=== PATIENT | male | born 1945 | race Caucasian/White ===

== ENCOUNTER 2017-07-23 18:44 | Emergency (ER) | payer MEDICARE, BC ==
[2017-07-23] MEDS ORDERED: Benoxinate/Fluorescein 0.4-0.25% Ophth Soln 5 ML Bottle EYEBOTH STA (19:09)
[2017-07-23] MEDS ORDERED: Proparacaine 0.5% Ophth Soln 15 ML Bottle EYEBOTH ONE (19:10)
[2017-07-23] MEDS ORDERED: Fluorescein 0.6 MG Ophth Strip EYEBOTH ONE (19:12)
[2017-07-23] MEDS ORDERED: cefTRIAXone 1 GM Vial IM ONE (19:31)
[2017-07-23] MEDS ORDERED: Doxycycline 100 MG Cap PO ONE (19:33)
[2017-07-23] MEDS ORDERED: Ciprofloxacin 0.3% Ophth Soln 2.5 ML Bottle EYEBOTH ONE (19:35)
--- NOTE | 2017-07-23 19:41 | EDM.PDOC ---
ED HPI GENERAL MEDICAL PROBLEM - General Chief Complaint: Eye Problems Stated Complaint: EYE ISSUES RIGHT EAR ISSUES Time Seen by Provider: 07/23/17 19:05 Source of Information: Reports: Patient History Limitations: Reports: No Limitations - History of Present Illness INITIAL COMMENTS - FREE TEXT/NARRATIVE: Patient is a 71-year-old male presents to the ED complaining of red and irritated eyes that started draining yellowish fluid. Patient states he awoke with the symptoms this morning and has progressively worsened over the course of today. Just irritated with no pain. In addition started developing some drainage from his right ear. States he was at the [facility] over the weekend. 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 Patient admits not washing his hands after using the restroom. He has no eye pain. No vision changes. He has not taken any medication for discomfort. Nor does he ever had similar symptoms as such. Denies any sinus drainage, runny nose , sore throat, cough, fever, or any additional complaints. 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 (see below) Other Treatments PANTOGRAPH II ENGRAVER: none Bilateral Eye Pain Score (Numeric/FACES): 10 - Related Data Allergies Allergy/AdvReac Type Severity Reaction Status Date / Time No Known Allergies Allergy Verified 07/23/17 18:58 Home Meds: Home Meds Doxycycline [Vibramycin] 100 mg PO DAILY #20 tab 07/23/17 [Rx] metFORMIN [Glucophage XR] 1,000 mg PO DAILY 07/23/17 [History] metFORMIN [Glucophage XR] 500 mg PO 1800 07/23/17 [History] Past Medical History Endocrine/Metabolic History: Reports: Diabetes, Type II Oncologic (Cancer) History: Reports: Prostate - Past Surgical History GI Surgical History: Reports: Hernia, Inguinal Social & Family History - Tobacco Use Smoking Status *Q: Current Every Day Smoker Years of Tobacco use: 50 Packs/Tins Daily: 0.2 - Caffeine Use Caffeine Use: Reports: Coffee - Recreational Drug Use Recreational Drug Use: No ED ROS GENERAL - Review of Systems Review Of Systems: See Below Constitutional: Reports: No Symptoms HEENT: Reports: Ear Discharge (right side), Eye Discharge (both eyes). Denies: Ear Pain, Eye Pain (irritation, no pain) Respiratory: Reports: No Symptoms Cardiovascular: Reports: No Symptoms Skin: Reports: No Symptoms ED EXAM GENERAL W FULL EYE - Physical Exam Exam: See Below Exam Limited By: No Limitations General Appearance: Alert, WD/WN, No Apparent Distress Eye Exam: Bilateral Eye: Conjunctival Injection, Other (thick yellowish drainage ) Visual Acuity (R) 20/: 40 Visual Acuity (L) 20/: 40 With Correction: No IOP (R) in mmH (Unable to obtain, equip) IOP (L) in mmH (unable to obtain, equip) IOP Measure with (Equipment): Other Eyelids: Bilateral: Normal Appearance Conjunctiva & Sclera: Bilateral: Injected Extraocular Movements: Bilateral: Intact Pupillary Size: Bilateral: 4 mm Pupillary Reaction: Bilateral: Brisk Ears: Other (right ear canal is swollen with yellowish drainage no blood. Left TM appears normal.) Throat/Mouth: Normal Inspection, Normal Voice, No Airway Compromise Head: Atraumatic, Normocephalic Neck: Normal Inspection, Supple, Non-Tender Respiratory/Chest: No Respiratory Distress, No Accessory Muscle Use Cardiovascular: Normal Peripheral Pulses, Regular Rate, Rhythm Neurological: Alert, Oriented, CN II-XII Intact, Normal Cognition, No Motor/ Sensory Deficits Psychiatric: Normal Affect, Normal Mood Skin Exam: Warm, Dry, Intact, Normal Color, No Rash Course - Vital Signs Last Recorded V/S: Last Vital Signs Temp 98.7 F 07/23/17 18:54 Pulse 73 07/23/17 18:54 Resp 20 07/23/17 18:54 BP 125/83 07/23/17 18:54 Pulse Ox 93 L 07/23/17 18:54 - Orders/Labs/Meds Meds: Medications Discontinued Medications Generic Name Dose Route Start Last Admin Trade Name Evans PRN Reason Stop Dose Admin Ceftriaxone Sodium 1 gm 07/23/17 19:31 07/23/17 19:59 Rocephin IM 07/23/17 19:32 1 gm ONETIME ONE Administration Ciprofloxacin 1 ml 07/23/17 19:35 07/23/17 20:00 Ciloxan 0.3% Ophth Soln EYEBOTH 07/23/17 19:36 1 drop ONETIME ONE Administration Doxycycline Hyclate 200 mg 07/23/17 19:33 07/23/17 19:59 Vibramycin PO 07/23/17 19:34 200 mg ONETIME ONE Administration Fluorescein Sodium 0.6 mg 07/23/17 19:12 Ful-Ailin EYEBOTH 07/23/17 19:13 ONETIME ONE Fluorescein Sodium/Benoxinate HCl 2 ml 07/23/17 19:09 Fluress Ophth Soln EYEBOTH 07/23/17 19:10 NOW STA Proparacaine HCl 2 ml 07/23/17 19:10 07/23/17 19:18 Proparacaine 0.5% Ophth Soln EYEBOTH 07/23/17 19:11 2 drop NOW ONE Administration - Re-Assessments/Exams Free Text/Narrative Re-Assessment/Exam: It appears patient has bilateral bacterial conjunctivitis with right-sided external otitis media. Unable to visualize the inner aspect of the ear. Labs ordered 1 g of Rocephin IM, doxycycline 100 mg by mouth, and Cipro drops to the eyes. Will discharge patient home with prescription for doxycycline. He'll take the Cipro drops home with him as well. Unable to get accurate intraocular pressure. 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 He does not complain of any significant pain. States is more of irritation than anything. Patient awoke with the symptoms. Departure - Departure Time of Disposition: 19:41 Disposition: Home, Self-Care 01 Condition: Good Clinical Impression: Conjunctivitis Qualifiers: Conjunctivitis type: unspecified Laterality: bilateral Qualified Code(s): H10.9 - Unspecified conjunctivitis External otitis of right ear Qualifiers: Otitis externa type: unspecified type Chronicity: acute Qualified Code(s): H60.501 - Unspecified acute noninfective otitis externa, right ear - Discharge Information Prescriptions: Doxycycline [Vibramycin] 100 mg PO DAILY #20 tab Instructions: Otitis Externa, [id number], Bacterial Conjunctivitis, Easy-to- Read, Bacterial Conjunctivitis Referrals: PCP,None [Primary Care Provider] - Forms: ED Department Discharge Additional Instructions: Apply ciprofloxacin ophthalmologic drops, one drop into both eyes times a day for 7 days. Take doxycycline 100 mg twice a day for the next 10 days. Do not rub your eyes. Wash hands after using a restroom, handling livestock, and with touching eyes. Followup with optometrists of your choice tomorrow or Monday for reevaluation. Return to the E.D. if you develop any new or worsening symptoms.
== END 2017-07-23 20:10 | disposition home or self-care (01) ==
LOC: SUPCPDRO 18:44 → JD.ED 18:44
DX: H60.501 Unspecified acute noninfective otitis externa, right ear (principal); H10.9 Unspecified conjunctivitis; E11.9 Type 2 diabetes mellitus without complications; F17.210 Nicotine dependence, cigarettes, uncomplicated; Z79.84 Long term (current) use of oral hypoglycemic drugs
CPT/HCPCS: 96372; 99283; A9270; J0696